=== PATIENT | male | born 1990 | race Caucasian/White ===

== ENCOUNTER 2016-05-31 04:12 | Emergency (ER) | payer BC ==
[~2016-05-31] VITALS: Ht 182.9 cm; Wt 77.3 kg
[~2016-05-31 04:12] MED LIST: PRLSR20 PO
[2016-05-31 04:24] VITALS: TEMP 36.8; Ht 182.9 cm; Wt 77.3 kg
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
[2016-05-31 11:52] VITALS: BP 119/106; PULSE 100; O2SAT 96
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
== END 2016-05-31 11:53 | disposition home or self-care (01) ==
LOC: EDBD 04:12 → C.ED 04:14 → C.EDC 11:53
DX: T14.8 Other injury of unspecified body region (principal); S00.93XA Contusion of unspecified part of head, initial encounter; Y04.0XXA Assault by unarmed brawl or fight, initial encounter; F17.200 Nicotine dependence, unspecified, uncomplicated